=== PATIENT | male | born 1985 | race Caucasian/White ===

== ENCOUNTER → 2016-11-30 | Outpatient (CLI) | payer OTHER | LOC: FIMAGING 09:04 | PROVIDERS: ATTEND Internal Medicine Hematology & Oncology | DX: C49.9 Malignant neoplasm of connective and soft tissue, unspecified (principal) ==

== ENCOUNTER → 2018-06-07 | Outpatient (CLI) | payer OTHER | LOC: FIMAGING 12:19 → EDSTATUS 12:21 | PROVIDERS: ATTEND Internal Medicine Hematology & Oncology | DX: C49.9 Malignant neoplasm of connective and soft tissue, unspecified (principal) ==